=== PATIENT | male | born 1990 | race Caucasian/White ===

== ENCOUNTER → 2020-11-05 | Outpatient (CLI) | payer SELFPAY ==
[~2020-11-05] MED LIST: CELE20TA PO; EFFE37.5 PO; IBUP-1114 PO; MINI1CAP PO; MINI2CAP PO; No home meds; QUET25TA3 PO; TRAZ-252 PO; VENL75CA2 PO; VIST50CA PO
== END ==
LOC: M LABSMTC 13:00
PROVIDERS: ATTEND Pediatrics
DX: Z20.822 Contact with and (suspected) exposure to COVID-19 (principal)